=== PATIENT | female | born 1970 | race Caucasian/White ===

== ENCOUNTER 2016-09-07 05:39 | Emergency (ER) | payer OTHER ==
[2016-09-07 06:15] LABS: URINE BILIRUBIN NEGATIVE (NEGATIVE); URINE BLOOD NEGATIVE (NEGATIVE); URINE GLUCOSE (UA) NORMAL (NORMAL); URINE KETONE NEGATIVE (NEGATIVE); URINE LEUKOCYTE ESTERASE TRACE (NEGATIVE); URINE NITRATE NEGATIVE (NEGATIVE); URINE PROTEIN NEGATIVE (NEGATIVE); UROBILINOGEN NORMAL mg/dL (<1.0)
[2016-09-07 06:30] LABS: URINE RBC RARE /[HPF] (0-2); URINE SQUAMOUS EPITHELIAL CELL 0-10 /[HPF] (NONE SEEN); URINE WBC RARE /[HPF] (0-5)
== END 2016-09-07 07:13 | disposition home or self-care (01) ==
LOC: ER 05:39
PROVIDERS: Internal Medicine
DX: R33.9 Retention of urine, unspecified (principal); R31.9 Hematuria, unspecified; Z79.899 Other long term (current) drug therapy; Z88.1 Allergy status to other antibiotic agents
CPT/HCPCS: 51702; 81001; 99070; 99283